=== PATIENT | female | born 1960 | race Caucasian/White ===

== ENCOUNTER 2018-03-24 04:23 | Day surgery (SDC) | payer OTHER | END 2018-03-24 09:55 | disposition home or self-care (01) | LOC: CIR.AMB 04:23 | DX: K42.9 Umbilical hernia without obstruction or gangrene (principal) ==

== ENCOUNTER 2019-01-27 13:05 | Emergency (ER) | payer OTHER ==
[~2019-01-27] VITALS: Ht 157.5 cm; Wt 63.5 kg
[2019-01-27] MEDS ORDERED: KETO10TA2 PO (14:28)
== END 2019-01-27 15:43 | disposition home or self-care (01) ==
LOC: ER 13:05
DX: S92.414A Nondisplaced fracture of proximal phalanx of right great toe, initial encounter for closed fracture (principal); W18.09XA Striking against other object with subsequent fall, initial encounter; Y93.89 Activity, other specified; Y92.89 Other specified places as the place of occurrence of the external cause; Y99.8 Other external cause status

== ENCOUNTER → 2020-07-25 14:41 | Outpatient (CLI) | payer OTHER ==
[~2020-07-25 14:41] MED LIST: KETO10TA2 PO
== END | disposition home or self-care (01) ==
LOC: PPH VACUNA 14:41
DX: Z23 Encounter for immunization (principal)

== ENCOUNTER 2021-02-20 09:30 | Outpatient (CLI) | payer OTHER | END 2021-02-20 09:34 | disposition home or self-care (01) | LOC: PPH VACUNA 09:30 | PROVIDERS: ATTEND Emergency Medicine Pediatric Emergency Medicine | DX: Z23 Encounter for immunization (principal) ==

== ENCOUNTER 2022-04-10 13:45 | Outpatient (CLI) | payer OTHER | END 2022-04-10 13:55 | disposition home or self-care (01) | LOC: PPH VACUNA 13:45 | PROVIDERS: ATTEND Emergency Medicine Pediatric Emergency Medicine | DX: Z23 Encounter for immunization (principal) ==

== ENCOUNTER 2022-04-10 13:46 | Outpatient (CLI) | payer OTHER | END 2022-04-10 13:55 | disposition home or self-care (01) | LOC: PPH VACUNA 13:46 | PROVIDERS: ATTEND Emergency Medicine Pediatric Emergency Medicine | DX: Z23 Encounter for immunization (principal) ==

== ENCOUNTER 2024-10-11 07:30 | Inpatient (IN) | payer OTHER ==
[~2024-10-11] VITALS: Ht 157.5 cm; Wt 63.5 kg
[2024-10-11] MEDS ORDERED: EVISTA60 MG (09:27)
[2024-10-11 09:28] VITALS: BP 130/76
[2024-10-11 09:30] VITALS: BP 145/82
[2024-10-11 09:45] LABS: PH,URINE 5.5 (5.0-8.0); URINE APPEARANCE Clear; URINE BILIRRUBIN Negative (NEGATIVE); URINE BLOOD Negative; URINE COLOR Yellow; URINE GLUCOSE Negative (NEGATIVE); URINE KETONE Negative (NEGATIVE); URINE LEUKOCYTE Moderate; URINE NITRATE Negative; URINE PROTEIN Negative (NEGATIVE); URINE UROBILINOGEN 0.2 E.U./dl
[2024-10-11 09:49] LABS: URINE BACTERIA 1860.4 uL (0.0-1933); URINE EPITHELIAL CELLS 78.1 uL (0.0-38.8); URINE RBC 2.3 uL (0.0-20.8); URINE WBC 136.4 uL (0.0-23.2)
[2024-10-11 09:59] LABS: BASO % 0.8 % (0.1-1.2); EOS # 0.09 (0.04-0.54); EOS % 1.4 % (0.7-7.0); HEMATOCRIT 41.9 % (34.1-44.9); HEMOGLOBIN 13.3 g/dL (11.2-15.7); LYMPH # 1.88 (1.18-3.74); LYMPH % 29.9 % (19.3-53.1); MEAN CORPUSCULAR HEMOGLOBIN 26.9 pg (25.6-32.2); MONO # 0.32 (0.24-0.82); MONO % 5.1 % (4.7-12.5); NEUT # 3.93 (1.56-6.13); NEUT % 62.5 % (34.0-71.1); PLATELET COUNT 214 K/uL (163-369); RED BLOOD COUNT 4.95 M/uL (3.93-5.22); RED CELL DISTRIBUTION WIDTH 13.2 % (11.6-14.4)
[2024-10-11 10:27] LABS: TYPE CELLS SQUAMOUS; URINE CAST 0.14 uL (0.0-1.40)
[2024-10-11 10:27] LABS: INR 0.94; PARTIAL THROMBOPLASTIN TIME 27.1 SECONDS (22.0-34.0); PROTHROMBIN TIME 10.3 SECONDS (9.0-11.5)
[2024-10-11 10:45] LABS: ALBUMIN 3.4 gm/dL (3.4-5.0); BILIRUBIN TOTAL 0.51 mg/dL (0.3-1.2); CREATININE SERUM 0.58 mg/dL (0.55-1.02); GFR 104.33; GLOBULINA 3.4 G/DL (2.4-3.5); POTASSIUM 4.17 mEq/L (3.5-5.1); TOTAL PROTEIN 6.8 gm/dL (6.4-8.2)
[2024-10-18] MEDS ORDERED: CEFAZOLIN SODIUM 1,000 MG VIAL ONE ×2 (11:16→20:53)
[2024-10-18] MEDS ORDERED: PANTOPRAZOLE SODIUM 40 MG/VIAL VIAL ONE (11:17)
[2024-10-18] MEDS ORDERED: SUGAMMADEX SODIUM 200 MG/2 ML VIAL IV ONE (17:10)
[2024-10-18] MEDS ORDERED: MORPHINE SULFATE 4 MG/ML VIAL IV ONE ×2 (18:30→19:25)
[2024-10-18] MEDS ORDERED: ENALAPRILAT DIHYDRATE 1.25 MG/ML VIAL IV ONE (20:20)
[2024-10-19 02:23] VITALS: BP 130/76
[2024-10-19] MEDS ORDERED: MORPHINE SULFATE 4 MG/ML CARTRIDGE IV SCH (05:00)
[2024-10-19] MEDS ORDERED: KETOROLAC TROMETHAMINE 10 MG TABLET PO SCH (06:00)
[2024-10-19 08:54] VITALS: BP 116/64
[2024-10-19] MEDS ORDERED: ONDANSETRON HCL 2 MG/ML VIAL IV SCH (09:00)
[2024-10-19] MEDS ORDERED: CEFAZOLIN SODIUM 1,000 MG VIAL IV ONE (09:00)
[2024-10-19 16:00] VITALS: BP 150/80
[2024-10-19 20:00] VITALS: BP 138/84
[2024-10-20 01:04] VITALS: BP 124/79
[2024-10-20 09:39] VITALS: BP 135/82
== END 2024-10-20 11:08 | disposition home or self-care (01) | DRG 743 ==
LOC: O/R 10-18 06:09 → SURH 10-18 07:00 → OB/GYN 10-18 18:21
PROVIDERS: ADMIT Obstetrics & Gynecology; ATTEND Obstetrics & Gynecology
PROC: 0DN80ZZ Release Small Intestine, Open Approach (ICD-10-PCS; 2024-10-18)
PROC: 0UB10ZZ Excision of Left Ovary, Open Approach (ICD-10-PCS; principal; 2024-10-18 07:00)
DX: D27.1 Benign neoplasm of left ovary (principal); N73.6 Female pelvic peritoneal adhesions (postinfective)